=== PATIENT | male | born 1990 | race Caucasian/White ===

== ENCOUNTER 2022-03-30 15:12 | Emergency (ER) | payer BC ==
[~2022-03-30] VITALS: Ht 180 cm; Wt 120.0 kg
[~2022-03-30 15:12] MED LIST: ALBU17AE23; ALBU8.5H6 INH; CEFD300C3 PO; DOXY-13 PO; METH4TAB PO; PRD20T PO; TRAM-42 PO
--- NOTE | 2022-03-30 15:42 | ED Chest Pain ---
General Chief Complaint: Chest Pain Stated Complaint: SHAKINESS,CHEST PAIN Nursing Triage Note: PT PRESENTS TO ED VIA POV FROM HOME WITH COMPLAINTS OF DRINKING AN ENERGY DRINK EARLIER TODAY AND FEELING SHAKY ALL OVER. PT ALSO REPORTS CENTRAL CP STARTING AROUND 14:30 AFTER TAKING HIS IBS MEDICATION. PT REPORTS HE THINKS THEY MAY HAVE GONE DOWN WRONG. Source: patient Exam Limitations: no limitations History of Present Illness Date Seen by Provider: Mar 30, 2022 Time Seen by Provider: 15:17 Initial Comments Here with report of feeling jittery after drinking an energy drink today. Started about 2 hours ago. He took his IBS medicines at around 230 and then felt central chest pain. He thinks he may have swallowed the pills wrong but he was concerned because of chest pain and feeling jittery and feeling like his hea rt rate was fast. He has had this energy drink before. He is also on ADHD medicine as well as IBS medicine. Denies nausea, vomiting, sweating or dizziness. Reports chest pain is central sternum and nonradiating and is better than earlier. No significant family history in his age group although his grandfather had a heart attack in his 40s. Timing/Duration: 1-3 hours Severity/Quality: mild, moderate, dull Location: central Radiation: no radiation Prior CP/Workup: no prior chest pain, no prior cardiac workup ASA po NETWORK CABLER: No NTG SL NETWORK CABLER: No Associated Symptoms: No abdominal pain, No nausea/vomiting, No shortness of breath, No weakness Allergies and Home Medications Allergies Coded Allergies: No Known Drug Allergies (Unverified , 01/16/16) Patient Home Medication List Home Medication List Reviewed: Yes Albuterol (Proventil Inh) 17 Gm Aerosol, (Reported) Entered as Reported by: SUMAN EDMONDS on 12/26/102019 Albuterol Sulfate (Ventolin Hfa) 8.5 Gm Hfa.aer.ad, 1 INHALER INH UD, (Reported) Entered as Reported by: ELISABET ESCALANTE on 03/21/162127 Prednisone (Prednisone) 20 Mg Tab, 40 MG PO DAILY Prescribed by: MOSES MARTIN on 03/21/162232 Review of Systems Review of Systems Constitutional: see HPI; No chills, No fever EENTM: No Nose Congestion, No Throat Pain Respiratory: Denies Cough, Denies Shortness of Air Cardiovascular: See HPI; Denies Edema Gastrointestinal: Denies Diarrhea, Denies Nausea, Denies Vomiting Psychiatric/Neurological: Denies Anxiety, Denies Weakness; Other (Elaine garcia) Past Mdumflr-Tmvdvv-Vklwea Hx Patient Social History Tobacco Use?: Yes Smoking Status: Light Tobacco Smoker Use of E-Cig and/or Vaping dev: No Substance use?: Yes Substance type: Marijuana Substance frequency: Once in a while Alcohol Use?: Yes Alcohol Frequency: Couple times a week Pt feels they are or have been: No Immunizations Up To Date Tetanus Booster (TDap): Less than 5yrs PED Vaccines UTD: Yes Seasonal Allergies Seasonal Allergies: No Past Medical History Surgery/Hospitalization HX: PMH: IBS, ADHD, ASTHMA Surgeries: No Respiratory: Yes Asthma Currently Using CPAP: No Currently Using BIPAP: No Neurological: No Reproductive Disorders: No Sexually Transmitted Disease: No HIV/AIDS: No Endocrine: No Psychosocial: Yes ADD/ADHD Adverse Reaction/Blood Tranf: No Family Medical History Heart Disease, Diabetes Physical Exam Vital Signs Vital Signs - First Documented 03/30/22 15:17 Temp 36.1 Pulse 73 Resp 18 B/P (MAP) 154/90 (111) Pulse Ox 98 Capillary Refill : Less Than 3 Seconds Height, Weight, BMI Height: 5'11" Weight: 250lbs. oz. 113.332453ep; 37.00 BMI Method:Stated General Appearance: No Apparent Distress, WD/WN HEENT: PERRL/EOMI, Pharynx Normal Neck: Supple Respiratory: Lungs Clear, Normal Breath Sounds Cardiovascular: Regular Rate, Rhythm, No Murmur Gastrointestinal: Non Tender, Soft Extremity: Normal Range of Motion, Non Tender Neurologic/Psychiatric: Alert, Oriented x3 Skin: Normal Color, Warm/Dry Progress/Results/Core Measures Results/Orders Lab Results Laboratory Tests Test 03/30/22 15:18 Range/Units White Blood Count 9.8 4.3-11.0 10^3/uL Red Blood Count 4.87 4.30-5.52 10^6/uL Hemoglobin 15.1 13.3-17.7 g/dL Hematocrit 44 40-54 % Mean Corpuscular Volume 90 80-99 fL Mean Corpuscular Hemoglobin 31 25-34 pg Mean Corpuscular Hemoglobin Concent 35 32-36 g/dL Red Cell Distribution Width 12.5 10.0-14.5 % Platelet Count 283 130-400 10^3/uL Mean Platelet Volume 8.8 L 9.0-12.2 fL Immature Granulocyte % (Auto) 0 % Neutrophils (%) (Auto) 74 42-75 % Lymphocytes (%) (Auto) 19 12-44 % Monocytes (%) (Auto) 5 0-12 % Eosinophils (%) (Auto) 2 0-10 % Basophils (%) (Auto) 0 0-10 % Neutrophils # (Auto) 7.2 1.8-7.8 X 10^3 Lymphocytes # (Auto) 1.9 1.0-4.0 X 10^3 Monocytes # (Auto) 0.5 0.0-1.0 X 10^3 Eosinophils # (Auto) 0.2 0.0-0.3 10^3/uL Basophils # (Auto) 0.0 0.0-0.1 10^3/uL Immature Granulocyte # (Auto) 0.0 0.0-0.1 10^3/uL Prothrombin Time 14.1 12.2-14.7 SEC INR Comment 1.0 0.8-1.4 Activated Partial Thromboplast Time 34 24-35 SEC D-Dimer <= 0.28 0.00-0.49 UG/ML Sodium Level 136 135-145 MMOL/L Potassium Level 3.7 3.6-5.0 MMOL/L Chloride Level 103 98-107 MMOL/L Carbon Dioxide Level 22 21-32 MMOL/L Anion Gap 11 5-14 MMOL/L Blood Urea Nitrogen 13 7-18 MG/DL Creatinine 0.83 0.60-1.30 MG/DL Estimat Glomerular Filtration Rate 121 BUN/Creatinine Ratio 16 Glucose Level 111 H 70-105 MG/DL Calcium Level 9.4 8.5-10.1 MG/DL Corrected Calcium 8.5-10.1 MG/DL Magnesium Level 1.9 1.6-2.4 MG/DL Total Bilirubin 0.7 0.1-1.0 MG/DL Aspartate Amino Transf (AST/SGOT) 24 5-34 U/L Alanine Aminotransferase (ALT/SGPT) 37 0-55 U/L Alkaline Phosphatase 76 40-136 U/L Myoglobin 35.2 10.0-92.0 NG/ML Troponin I < 0.028 <0.028 NG/ML Total Protein 7.7 6.4-8.2 GM/DL Albumin 4.7 H 3.2-4.5 GM/DL TSH [place] Testing 1.34 0.35-4.94 UIU/ML My Orders Orders - MOSES MARTIN MD Cbc With Automated Diff (03/30/22 15:35) Magnesium (03/30/22 15:35) Chest 1 View, Ap/Pa Only (03/30/22 15:35) Ekg Tracing (03/30/22 15:35) Comprehensive Metabolic Panel (03/30/22 15:35) Myoglobin Serum (03/30/22 15:35) Protime With Inr (03/30/22 15:35) Partial Thromboplastin Time (03/30/22 15:35) Monitor-Rhythm Ecg Trace Only (03/30/22 15:35) Lipid Panel (03/31/22 06:00) Ed Iv/Invasive Line Start (03/30/22 15:35) Fibrin Degradation Products (03/30/22 15:35) Troponin I [place] (03/30/22 15:35) Aspirin Chewable Tablet (Baby Aspirin Ch (03/30/22 15:45) Thyroid Analyzer (03/30/22 15:35) Lidocaine 2% Viscous 15 Ml (Xylocaine Vi (03/30/22 15:45) Antacid Suspension (Mylanta Suspension (03/30/22 15:45) Medications Given in ED Current Medications Medications Dose Ordered Sig/Sangita Route Start Time Stop Time Status Last Admin Dose Admin Al Hydrox/Mg Hydrox/Simethicone 30 ml ONCE ONCE PO 03/30/22 15:45 03/30/22 15:46 DC 03/30/22 15:53 30 ML Aspirin 324 mg ONCE ONCE PO 03/30/22 15:45 03/30/22 15:46 DC 03/30/22 15:53 324 MG Lidocaine HCl 15 ml ONCE ONCE PO 03/30/22 15:45 03/30/22 15:46 DC 03/30/22 15:53 15 ML Vital Signs/I&O 03/30/22 15:17 Temp 36.1 Pulse 73 Resp 18 B/P (MAP) 154/90 (111) Pulse Ox 98 Blood Pressure Mean: 111 Progress Progress Note : Progress Note Seen and evaluated. IV, CBC, CMP, troponin, D-dimer, thyroid study, chest x-ray and EKG ordered. ASA 324 mg p.o. GI cocktail p.o. ordered. Monitor patient. Differential diagnosis includes cardiac event, electrolyte abnormality, hormone abnormality, esophageal pain, adverse effect energy drink 1638: Chest x-ray shows no acute findings on my interpretation. Pending radiology review. CBC shows no acute findings with normal white count and normal hemoglobin. Chemistries show normal electrolytes and normal renal function. Troponin is negative. D-dimer is pending. Thyroid function is normal. 1725: D-dimer is negative. Pain was completely relieved after GI cocktail. We did discuss the option of repeating troponin test versus going home. Patient would like to just go home. I believe this is reasonable approach as he is low risk for cardiac disease and we have other more likely causes of his pain. He was instructed to stop energy drinks. Discharged home with return precautions. Patient verbalized understanding of instructions and agreement with plan. Initial ECG Impression Date: Mar 30, 2022 Initial ECG Impression Time: 15:22 Initial ECG Rate: 74 Initial ECG Rhythm: Normal Sinus Initial ECG Impression: Normal Comment Sinus rhythm with normal rate and normal axis. No evidence of ST elevation DE. Sinus arrhythmia noted. Interpreted by me. Diagnostic Imaging Diagonstic Imaging: Xray Plain Films/CT/US/NM/MRI: chest Comments [facility], [place] NAME: ALTON GUTIERREZ [facility] REC#: [id number] PT STATUS: REG ER : 1990 PHYSICIAN: MOSES MARTIN MD ADMIT DATE: 03/30/22/ER Signed Date of Exam:03/30/22 CHEST 1 VIEW, AP/PA ONLY EXAMINATION: Chest 1 view HISTORY: Chest pain COMPARISON: 03/21/2016. FINDINGS: Heart size and pulmonary vasculature are normal. The lungs are clear without consolidation, pleural effusion, or pneumothorax. The osseous structures are intact. IMPRESSION: 1. No acute radiographic abnormality in the chest. Dictated by: Dictated on workstation # [id number] Dict: 03/30/22 1601 Trans: 03/30/22 1606 [id number] [id number] Interpreted by: ELISABET ROMERO DO Electronically signed by: ELISABET ROMERO DO 03/30/22 1606 Departure Impression Primary Impression: Chest pain Qualified Codes: R07.9 - Chest pain, unspecified Additional Impression: Shakiness Disposition: HOME, SELF-CARE Condition: Improved Departure-Patient Inst. Decision time for Depature: 17:30 Referrals: [facility] (PCP/Family) Primary Care Physician Patient Instructions: Chest Pain (DC) Add. Discharge Instructions: All discharge instructions reviewed with patient and/or family. Voiced understanding. Drink plenty of fluids and get plenty of rest. Avoid using energy drinks. Cont inue home medications as previously prescribed. Follow-up with your doctor for recheck and further evaluation. Return for chest pain, breathing problems, weakness, vomiting, dizziness, sweating or other concerns as needed. MOSES MARTIN MD Mar 30, 2022 15:42
[2022-03-30] MEDS ORDERED: ANTACID SUSP 30 ML UDC (MYLANTA) PO ONE (15:45)
[2022-03-30] MEDS ORDERED: ASPIRIN 81 MG CHEW (CHILDREN'S ASA) PO ONE (15:45)
[2022-03-30] MEDS ORDERED: LIDOCAINE 2% VISCOUS 15 ML UDC PO ONE (15:45)
[2022-03-30 15:46] LABS: BASOPHILS % (AUTO) 0 % (0-10); EOSINOPHILS # (AUTO) 0.2 10^3/uL (0.0-0.3); EOSINOPHILS % (AUTO) 2 % (0-10); HEMATOCRIT 44 % (40-54); HEMOGLOBIN 15.1 g/dL (13.3-17.7); LYMPHOCYTES # (AUTO) 1.9 X 10^3 (1.0-4.0); LYMPHOCYTES % (AUTO) 19 % (12-44); MEAN CORPUSCULAR HEMOGLOBIN 31 pg (25-34); MEAN CORPUSCULAR HGB CONC 35 g/dL (32-36); MEAN CORPUSCULAR VOLUME 90 fL (80-99); MEAN PLATELET VOLUME 8.8 fL (9.0-12.2); MONOCYTES # (AUTO) 0.5 X 10^3 (0.0-1.0); MONOCYTES % (AUTO) 5 % (0-12); NEUTROPHILS # (AUTO) 7.2 X 10^3 (1.8-7.8); NEUTROPHILS % (AUTO) 74 % (42-75); PLATELET COUNT 283 10^3/uL (130-400); WHITE BLOOD COUNT 9.8 10^3/uL (4.3-11.0)
[2022-03-30 15:47] LABS: ALBUMIN 4.7 GM/DL (3.2-4.5); CHLORIDE 103 MMOL/L (98-107); POTASSIUM 3.7 MMOL/L (3.6-5.0); SODIUM 136 MMOL/L (135-145)
[2022-03-30 15:48] LABS: CALCIUM 9.4 MG/DL (8.5-10.1)
[2022-03-30 15:49] LABS: GLUCOSE 111 MG/DL (70-105)
[2022-03-30 15:50] LABS: TOTAL PROTEIN 7.7 GM/DL (6.4-8.2)
[2022-03-30 15:51] LABS: BILIRUBIN,TOTAL 0.7 MG/DL (0.1-1.0); CARBON DIOXIDE 22 MMOL/L (21-32)
[2022-03-30 15:52] LABS: PROTHROMBIN TIME PATIENT 14.1 SEC (12.2-14.7)
[2022-03-30 15:53] LABS: ALKALINE PHOSPHATASE 76 U/L (40-136); CREATININE SERUM 0.83 MG/DL (0.60-1.30); GFR ESTIMATED 121
[2022-03-30 15:54] LABS: BUN/CREATININE RATIO 16
[2022-03-30 15:56] LABS: ALANINE AMINOTRANSFERASE 37 U/L (0-55); MAGNESIUM 1.9 MG/DL (1.6-2.4)
--- NOTE | 2022-03-30 16:03 | Diagnostic Imaging Report ---
EXAMINATION: Chest 1 view HISTORY: Chest pain COMPARISON: 03/21/2016. FINDINGS: Heart size and pulmonary vasculature are normal. The lungs are clear without consolidation, pleural effusion, or pneumothorax. The osseous structures are intact. IMPRESSION: 1. No acute radiographic abnormality in the chest. Dictated by: Dictated on workstation # [id number]
[2022-03-30 16:18] LABS: TSH (THYROID ANALYZER) 1.34 UIU/ML (0.35-4.94)
[2022-03-30 17:37] VITALS: BP 140/62
== END 2022-03-30 17:37 | disposition home or self-care (01) ==
LOC: EDUNIT# 15:12 → ER 15:16
DX: R07.9 Chest pain, unspecified (principal); R25.1 Tremor, unspecified; F90.9 Attention-deficit hyperactivity disorder, unspecified type; K58.9 Irritable bowel syndrome, unspecified; F17.200 Nicotine dependence, unspecified, uncomplicated
CPT/HCPCS: 36415; 71045; 80053; 83735; 83874; 84443; 84484; 85025; 85379; 85610; 85730; 93005; 93041